=== PATIENT | female | born 1980 | race Caucasian/White ===

== ENCOUNTER 2022-04-25 13:28 | Emergency (ER) | payer MEDICAID ==
[2022-04-25 13:34] VITALS: BP 123/76
[2022-04-25 14:29] LABS: HCG Qualitative,Urine Positive (Negative)
[2022-04-25 14:30] LABS: Bilirubin,Urine NEG (Negative); Blood,Urine NEG (Negative); Color,Urine Yellow (Yellow); Protein,Urine <15 mg/dL mg/dL (Negative); Urobilinogen,Urine < 2.0 mg/dL (<2.0)
[2022-04-25 14:35] LABS: Mucus,Urine 3+ /HPF
--- NOTE | 2022-04-25 15:13 | Emergency Department Report ---
ED General Adult HPI - General Chief complaint: Headache Stated complaint: GENEARAL SICKNESS 1 MONTH 5 DAYS Source: patient, family Mode of arrival: Ambulatory Limitations: Language Barrier - History of Present Illness Initial comments: cdl b driver used. 42-year-old female presents to the ED complains with no complaints. Patient is 11 Para A2. Patient states that her last menstrual cycle was March 19 and was concerned that she may be . She has a history of migraine headache currently taking nortriptyline AC and rizatriptan 10mg for migraine headache. Patient was concerned if she was and should continue medication. Patient denies any abdominal pain vaginal discharge or vaginal bleeding at present time. Denies any fever ,chills ,nausea or vomiting. Patient is alert and oriented x3. No acute distress noted. No ill appearance noted. - Related Data Home Medications Medication Instructions Recorded Confirmed Last Taken Nortriptyline 10 mg PO QDAY 04/25/22 04/25/22 Unknown Rizatriptan 10 mg PO QDAY PRN 04/25/22 04/25/22 Unknown Allergies Allergy/AdvReac Type Severity Reaction Status Date / Time No Known Allergies Allergy Unverified 04/25/22 13:30 ED Review of Systems ROS: Stated complaint: GENEARAL SICKNESS 1 MONTH 5 DAYS Other details as noted in HPI Constitutional: denies: chills, fever Eyes: denies: eye pain, eye discharge, vision change ENT: denies: ear pain, throat pain Respiratory: denies: cough, shortness of breath, wheezing Cardiovascular: denies: chest pain, palpitations Endocrine: no symptoms reported Gastrointestinal: denies: abdominal pain, nausea, diarrhea Genitourinary: denies: urgency, dysuria, discharge Musculoskeletal: denies: back pain, joint swelling, arthralgia Skin: denies: rash, lesions Neurological: denies: headache, weakness, paresthesias Psychiatric: denies: anxiety, depression Hematological/Lymphatic: denies: easy bleeding, easy bruising ED Past Medical Hx - Past Medical History Previous Medical History?: Yes Hx Headaches / Migraines: Yes - Surgical History Past Surgical History?: No - Medications Home Medications: Home Medications Medication Instructions Recorded Confirmed Last Taken Type Nortriptyline 10 mg PO QDAY 04/25/22 04/25/22 Unknown History Rizatriptan 10 mg PO QDAY PRN 04/25/22 04/25/22 Unknown History ED Physical Exam - General Limitations: Language Barrier General appearance: alert, in no apparent distress - Head Head exam: Present: atraumatic, normocephalic - Eye Eye exam: Present: normal appearance - ENT ENT exam: Present: mucous membranes moist - Neck Neck exam: Present: normal inspection - Respiratory Respiratory exam: Present: normal lung sounds bilaterally. Absent: respiratory distress - Cardiovascular Cardiovascular Exam: Present: regular rate, normal rhythm. Absent: systolic murmur, diastolic murmur, rubs, gallop - GI/Abdominal GI/Abdominal exam: Present: soft, normal bowel sounds - Extremities Exam Extremities exam: Present: normal inspection - Back Exam Back exam: Present: normal inspection - Neurological Exam Neurological exam: Present: alert, oriented X3 - Psychiatric Psychiatric exam: Present: normal affect, normal mood - Skin Skin exam: Present: warm, dry, intact, normal color. Absent: rash ED Course Vital Signs 04/25/22 13:32 Temperature 98.0 F Pulse Rate 88 Respiratory 18 Rate Blood Pressure 123/76 O2 Sat by Pulse 98 Oximetry ED Medical Decision Making - Medical Decision Making cdl b driver used. 42-year-old female presents to the ED complains with no complaints. Patient is 11 Para A2. Patient states that her last menstrual cycle was March 19 and was concerned that she may be . She has a history of migraine headache currently taking nortriptyline AC and rizatriptan 10mg for migraine headache. Patient was concerned if she was and should continue medication. Patient denies any abdominal pain vaginal discharge or vaginal bleeding at present time. Denies any fever ,chills ,nausea or vomiting. Patient is alert and oriented x3. No acute distress noted. No ill appearance noted. Urinalysis the test is positive. Rechecked the patient is resting quietly quietly and comfortable and feeling better. I discussed the results of diagnostic study, my clinical impression and the plan for further treatment with the patient. Patient agrees with plan and discharge at this present time. All question addressed. I have given the patient instruction regarding a diagnosis ,expectation ,follow- up and return precaution. I explained to the patient that emergent condition may arise and to return to the ED for new worsen and any new persisting condition. I have explained the importance of following up with the primary care physician or referral physician listed below has instructed. The patient verbalized understanding of discharge instruction. Laboratory Results - last 72 hr 04/25/22 14:18 Urine Color Yellow Urine Turbidity Hazy Urine pH 5.0 Ur Specific [place] 1.026 Urine Protein <15 mg/dl Urine Glucose (UA) Neg Urine Ketones Neg Urine Blood Neg Urine Nitrite Neg Ur Reducing Substances Not Reportable Urine Bilirubin Neg Urine Ictotest Not Reportable Urine Urobilinogen < 2.0 Ur Leukocyte Esterase Neg Urine WBC (Auto) 1.0 Urine RBC (Auto) 1.0 U Epithel Cells (Auto) 12.0 Urine Mucus 3+ Urine HCG, Qual Positive A Critical care attestation.: If time is entered above; I have spent that time in minutes in the direct care of this critically ill patient, excluding procedure time. ED Disposition Clinical Impression: Qualifiers: Weeks of gestation: less than 8 weeks Qualified Code(s): Z3A.01 - Less than 8 weeks gestation of Disposition: 01 HOME / SELF CARE / HOMELESS Is pt being admited?: No Does the pt Need Aspirin: No Condition: Stable Instructions: First Trimester of , [id number] Additional Instructions: Stop taking medication nortriptyline HCl May take Tylenol [id number] for headache Referrals: [facility] [Provider Group] - 3-5 Days Forms: Work/School Release Form(ED) Time of Disposition: 15:13
== END 2022-04-25 15:25 | disposition home or self-care (01) ==
LOC: ED 13:28
DX: Z34.81 Encounter for supervision of other normal pregnancy, first trimester (principal); Z3A.01 Less than 8 weeks gestation of pregnancy
CPT/HCPCS: 81001; 81025; 99283